=== PATIENT | male | born 1980 | race Caucasian/White ===

== ENCOUNTER 2020-09-29 14:50 | Emergency (ER) | payer MEDICAID ==
[~2020-09-29] VITALS: Ht 152.4 cm; Wt 47.7 kg
[2020-09-29 14:55] VITALS: BP 112/68
== END 2020-09-29 15:52 | disposition home or self-care (01) ==
LOC: ER 14:52
DX: T18.9XXA Foreign body of alimentary tract, part unspecified, initial encounter (principal); X58.XXXA Exposure to other specified factors, initial encounter; Y93.89 Activity, other specified; Y92.89 Other specified places as the place of occurrence of the external cause; Y99.8 Other external cause status
CPT/HCPCS: 99281